=== PATIENT | male | born 1965 | race Caucasian/White ===

== ENCOUNTER 2017-01-06 10:58 | Day surgery (SDC) | payer OTHER ==
[~2017-01-06 10:58] MED LIST: Lactated Ringers 1,000 ML IV SCH; Sodium Chloride 0.9% 10 ML Syringe FLUSH PRN
--- NOTE | 2017-01-06 12:13 | PCM.HPR ---
H & P Addendum review - H & P Addendum Review Date of Original H & P: 12/20/16 Date Reviewed: 01/06/17 Time Reviewed: 12:13 Patient was examined: No Changes (ok to proceed with colonoscopy)
[2017-01-06] MEDS ORDERED: Propofol 200 MG/20 ML SDV ONE ×2 (12:17→12:20)
--- NOTE | 2017-01-06 12:39 | PCM.OPNOTE ---
- General Post-Op/Procedure Note Date of Surgery/Procedure: 01/06/17 Operative Procedure(s): Colonoscopy Findings: Normal Pre Op Diagnosis: Screening Post-Op Diagnosis: Same Anesthesia Technique: MAC Primary Surgeon: Arsenio Burnett Complications: None Condition: Good
--- NOTE | 2017-01-06 14:10 | OR ---
Date of Procedure: 01/06/2017 PREOPERATIVE DIAGNOSIS: Colon screening. POSTOPERATIVE DIAGNOSIS: Normal colonoscopy. PROCEDURE: Colonoscopy. ANESTHESIA: IV sedation. PROCEDURE IN DETAIL: The patient was brought to the procedure room, where he was placed on the left side and IV sedation administered. Digital rectal exam was performed, which was normal. Colonoscope was inserted and advanced to the level of the cecum without difficulty. Cecal position was confirmed by identifying the appendiceal lumen and ileocecal valve. Prep was good and surfaces were well visualized. Upon withdrawing the scope, the ascending, transverse, and descending colon were normal in appearance. Sigmoid colon and rectum were normal. Retroflexion was normal. Air was removed and the scope withdrawn. The patient tolerated the procedure well and returned to recovery in stable condition. Recommend routine colon screening again in 10 years. GERARDO QUINTANILLA MD /[id number]
[2017-01-06 18:36] VITALS: BP 117/72
== END 2017-01-06 13:28 | disposition home or self-care (01) ==
LOC: LL.SDS 10:58
PROVIDERS: ATTEND Surgery
DX: Z12.11 Encounter for screening for malignant neoplasm of colon (principal); Z88.8 Allergy status to other drugs, medicaments and biological substances; F17.210 Nicotine dependence, cigarettes, uncomplicated; Z98.890 Other specified postprocedural states
CPT/HCPCS: 45378; J2704; J7050; J7120

== ENCOUNTER 2023-05-12 13:23 | Emergency (ER) | payer OTHER ==
[2023-05-12] MEDS ORDERED: Sodium Chloride 0.9% 10 ML Syringe FLUSH PRN (13:32)
[2023-05-12 13:42] LABS: BASOPHILS ABSOLUTE AUTO 0.04 K/uL (0.00-0.20); BASOPHILS PERCENT AUTO 0.4 % (0.0-2.0); EOSINOPHILS ABSOLUTE AUTO 0.84 K/uL (0.00-0.50); EOSINOPHILS PERCENT AUTO 7.9 % (0.0-5.0); HEMATOCRIT 49.9 % (39.0-49.0); HEMOGLOBIN 17.2 g/dL (13.1-16.8); LYMPHOCYTES PERCENT AUTO 32.9 % (10.0-50.0); MEAN CORPUSCULAR HEMOGLOBIN 30.6 pg (28.2-33.3); MEAN CORPUSCULAR HGB CONC 34.5 g/dL (31.7-36.0); MEAN CORPUSCULAR VOLUME 88.8 fL (84.0-98.0); MONOCYTES ABSOLUTE AUTO 0.47 K/uL (0.00-1.00); MONOCYTES PERCENT AUTO 4.4 % (2.0-14.0); NEUTROPHILS ABSOLUTE AUTO 5.79 K/uL (1.40-7.00); NEUTROPHILS PERCENT AUTO 54.4 % (45.0-80.0); PLATELET COUNT,PLT 203 K/uL (150-350); RED BLOOD CELL COUNT 5.62 M/uL (4.33-5.41); RED CELL DISTRIBUTION WIDTH 13.4 % (11.2-14.1); WHITE BLOOD CELL COUNT,WBC 10.6 K/uL (4.0-10.2)
[2023-05-12] MEDS ORDERED: Aspirin 81 MG Tab.Chew PO ONE (14:02)
[2023-05-12 14:07] LABS: ALANINE AMINOTRANSFERASE,ALT 28 U/L (12-78); ALBUMIN 3.9 g/dL (3.4-5.0); ALKALINE PHOSPHATASE 92 IU/L (46-116); ANION GAP 8.7 meq/L (7-15); ASPARTATE AMNIOTRANSFERASE,AST 17 U/L (15-37); BILIRUBIN TOTAL 0.7 mg/dL (0.2-1.0); BLOOD UREA NITROGEN,BUN 13 mg/dL (7-18); CALCIUM 8.9 mg/dL (8.5-10.1); CARBON DIOXIDE,CO2 26.3 mmol/L (21.0-32.0); CHLORIDE,CL 104 mmol/L (98-107); GLUCOSE RANDOM 100 mg/dL (70-99); POTASSIUM,K 4.4 mmol/L (3.5-5.1); PRO B-TYPE NATRIUR PEPT,BNPPRO 41 pg/mL (0-125); PROTEIN TOTAL,TP 7.1 g/dL (6.4-8.2); SODIUM,NA 139 mmol/L (136-145)
[2023-05-12 14:15] LABS: ESTIMATED GFR 87 mL/min (>=60)
[2023-05-12 14:30] LABS: APPEARANCE,URINE CLEAR; BILIRUBIN,URINE NEGATIVE (NEGATIVE); COLOR,URINE YELLOW; GLUCOSE,URINE NEGATIVE (NEGATIVE); KETONES,URINE NEGATIVE (NEGATIVE); LEUKOCYTE ESTERASE,URINE NEGATIVE (NEGATIVE); NITRITE,URINE NEGATIVE (NEGATIVE); OCCULT BLOOD,URINE NEGATIVE (NEGATIVE); PH,URINE 6.5 (5.0-9.0); PROTEIN,URINE NEGATIVE (NEGATIVE); UROBILINOGEN,URINE 0.2 E.U./dL (0.2-1.0)
[2023-05-12 17:08] VITALS: BP 131/75; PULSE 54
[2023-05-13] MEDS ORDERED: Aspirin 81 MG Tab.Chew PO ONE (14:02)
== END 2023-05-12 17:10 | disposition home or self-care (01) ==
LOC: LL.ED 13:23
DX: R07.9 Chest pain, unspecified (principal); I11.0 Hypertensive heart disease with heart failure; I50.20 Unspecified systolic (congestive) heart failure; E78.00 Pure hypercholesterolemia, unspecified; F17.210 Nicotine dependence, cigarettes, uncomplicated; Z88.8 Allergy status to other drugs, medicaments and biological substances; Z79.899 Other long term (current) drug therapy
CPT/HCPCS: 36415; 71045; 80053; 81003; 83605; 83735; 83880; 84484; 85025; 85379; 93005; 93010; 99283; 99285; A9270-GY